=== PATIENT | male | born 1980 | race American Indian/Alaskan Native ===

== ENCOUNTER 2022-08-12 16:24 | Emergency (ER) | payer SELFPAY ==
[2022-08-12 16:45] VITALS: BP 113/78
[2022-08-12] MEDS ORDERED: LIDOCAINE (1%) 10 MG/1 ML VIAL 20 ML MDV INFILTRATI ONE (17:00)
--- NOTE | 2022-08-12 17:19 | Cat Scan Report ---
CT MAXILLOFACIAL WITHOUT CONTRAST INDICATION / CLINICAL INFORMATION: fall, injury. TECHNIQUE: All CT scans at this location are performed using CT dose reduction for ALARA by means of automated e xposure control. COMPARISON: None available. FINDINGS: There are edematous changes involving right buccal soft tissues with irregularity of the overlying sk in compatible with laceration in this patient with given history of "injury". Additionally, there are somewhat at contiguous of foci of increased attenuation extending into the deeper soft tissues inclu ding the right masseter muscle to a depth of approximately 1.8 cm and correlation would be needed at regarding the type of injury and foreign bodies in this location. The underlying mandible appears int act FACIAL BONES: There is no clear CT evidence of acute fracture of the facial bones. The orbital peña, sinuses and zygomatic arches also appear intact. There are multiple lucencies involving root of the molars. However, no significant inflammatory changes are seen within the adjacent soft tissues to ind icate infectious process. PARANASAL SINUSES: There is minimal mucosal thickening along the inferior maxillary sinuses measuring 3-4 mm in greatest thickness. Is also opacification of the ostiomeatal complexes along with mild muc osal thickening within the ethmoid air cells. This mild deviation of the nasal septum toward the right. There is a focal defect more anteriorly whi ch may be on a postoperative basis and correlation would be needed. There is opacification of the adj acent nasal cavities and the findings may be on inflammatory basis. ORBITS: The optic globes demonstrate appropriate size and configuration. No significant post septal i nflammatory changes are identified. ADDITIONAL FINDINGS: None. IMPRESSION: 1. The findings are compatible with post traumatic changes involving right buccal soft tissues with debris extending within the deeper soft tissues including the right masseter muscle as detailed abov e. 2. There is no clear CT evidence of acute fracture of the facial bones. 3. There are sinonasal inflammatory changes, also described above. Signer Name: Michael Daniel MD Signed: 08/12/2022 5:14 PM Workstation Name: [id number]
[2022-08-12] MEDS ORDERED: oxyCODONE /ACETAMINOPHEN 5-325MG TAB PO ONE (17:25)
[2022-08-12] MEDS ORDERED: KETOROLAC 10 MG TAB PO ONE (17:25)
--- NOTE | 2022-08-12 18:25 | Emergency Department Report ---
- General Chief Complaint: Laceration/Recheck/Suture Stated Complaint: CUT ON FACE Time Seen by Provider: 08/12/22 17:25 Source: patient Mode of arrival: Ambulatory Limitations: No Limitations - History of Present Illness Initial Comments: 41-year-old black male with no past medical history presents to the emergency department for evaluation after a fall. He states that he was walking, fell down, and cut the side of his face. He denies loss of consciousness and presents with laceration to right side of face along with pain and swelling to area. He states that pain in his face is significantly worse when he attempts to open his mouth and his tetanus is up-to-date. -: Sudden Location: face Place: work, outdoors Context: accidental Associated Symptoms: pain - Related Data Previous Rx's Medication Instructions Recorded Last Taken Type Ketorolac [Toradol] 10 mg PO Q6H PRN #12 tab 08/12/22 Unknown Rx Allergies Allergy/AdvReac Type Severity Reaction Status Date / Time No Known Allergies Allergy Verified 08/12/22 16:47 ED Review of Systems ROS: Stated complaint: CUT ON FACE Other details as noted in HPI Comment: All other systems reviewed and negative Constitutional: denies: chills ENT: denies: ear pain Respiratory: denies: shortness of breath Cardiovascular: denies: chest pain, palpitations Gastrointestinal: denies: abdominal pain, nausea, vomiting Neurological: denies: headache, weakness ED Past Medical Hx - Past Medical History Previous Medical History?: No - Surgical History Past Surgical History?: No - Medications Home Medications: Home Medications Medication Instructions Recorded Confirmed Last Taken Type Ketorolac [Toradol] 10 mg PO Q6H PRN #12 tab 08/12/22 Unknown Rx ED Physical Exam - General Limitations: No Limitations General appearance: alert, in no apparent distress - Head Head exam: Present: normocephalic. Absent: atraumatic - Expanded Head Exam Expanded Head exam: Present: laceration 1 - Laceration - Eye Eye exam: Present: normal appearance. Absent: periorbital swelling - Neck Neck exam: Present: normal inspection - Respiratory Respiratory exam: Absent: respiratory distress - Cardiovascular Cardiovascular Exam: Present: regular rate - GI/Abdominal GI/Abdominal exam: Absent: distended, tenderness - Extremities Exam Extremities exam: Present: normal inspection - Back Exam Back exam: Present: normal inspection - Neurological Exam Neurological exam: Present: alert, oriented X3 - Psychiatric Psychiatric exam: Present: normal affect, normal mood - Skin Skin exam: Present: warm, dry, normal color ED Course Vital Signs 08/12/22 16:41 Temperature 98.9 F Pulse Rate 94 H Respiratory 16 Rate Blood Pressure 113/78 [Left] O2 Sat by Pulse 97 Oximetry - Laceration /Wound Repair Right Face Wound Location: face Wound Length (cm): 6 Wound's Depth, Shape: into muscle, stellate Wound Explored: no foreign body removed Irrigated w/ Saline (ccs): 80 Betadine Prep?: No Anesthesia: 1% Lidocaine Volume Anesthetic (ccs): 10 Wound Repaired With: sutures Suture Size/Type: 5:0, nylon Number of Sutures: 12 Layer Closure?: No Sterile Dressing Applied?: No Progress: Patient tolerated well ED Medical Decision Making - Radiology Data Radiology results: report reviewed, image reviewed CT facial bones without contrast: FINDINGS: There are edematous changes involving right buccal soft tissues with irregularity of the overlying skin compatible with laceration in this patient with given history of "injury". Additionally, there are somewhat at contiguous of foci of increased attenuation extending into the deeper soft tissues including the right masseter muscle to a depth of approximately 1.8 cm and correlation would be needed at regarding the type of injury and foreign bodies in this location. The underlying mandible appears intact FACIAL BONES: There is no clear CT evidence of acute fracture of the facial bones. The orbital peña, sinuses and zygomatic arches also appear intact. There are multiple lucencies involving root of the molars. However, no significant inflammatory changes are seen within the adjacent soft tissues to indicate infectious process. PARANASAL SINUSES: There is minimal mucosal thickening along the inferior maxillary sinuses measuring 3-4 mm in greatest thickness. Is also opacification of the ostiomeatal complexes along with mild mucosal thickening within the ethmoid air cells. This mild deviation of the nasal septum toward the right. There is a focal de fect more anteriorly which may be on a postoperative basis and correlation would be needed. There is opacification of the adjacent nasal cavities and the findings may be on inflammatory basis. ORBITS: The optic globes demonstrate appropriate size and configuration. No significant post septal inflammatory changes are identified. ADDITIONAL FINDINGS: None. IMPRESSION: 1. The findings are compatible with post traumatic changes involving right buccal soft tissues with debris extending within the deeper soft tissues including the right masseter muscle as detailed above. 2. There is no clear CT evidence of acute fracture of the facial bones. 3. There are sinonasal inflammatory changes, also described above. - Medical Decision Making 41-year-old black male with no past medical history presents to the emergency department for evaluation after a fall. He states that he was walking, fell down, and cut the side of his face. He denies loss of consciousness and presents with laceration to right side of face along with pain and swelling to area. He states that pain in his face is significantly worse when he attempts to open his mouth and his tetanus is up-to-date. CT facial bones without any acute abnormalities noted. Facial laceration repaired per my procedure note. Discussed signs and symptoms of infection with patient and advised him to return if any noted. Patient discharged home with Toradol to use as needed for pain and advised to return in 7 to 10 days for suture removal. He verbalizes understanding of and agreement with plan of care. Critical care attestation.: If time is entered above; I have spent that time in minutes in the direct care of this critically ill patient, excluding procedure time. ED Disposition Clinical Impression: Fall Qualifiers: Encounter type: initial encounter Qualified Code(s): W19.XXXA - Unspecified fall, initial encounter Facial laceration Qualifiers: Encounter type: initial encounter Qualified Code(s): S01.81XA - Laceration without foreign body of other part of head, initial encounter Disposition: 01 HOME / SELF CARE / HOMELESS Is pt being admited?: No Does the pt Need Aspirin: No Condition: Stable Instructions: Laceration Care, Adult, [id number], Sutured Wound Care, [id number] Additional Instructions: Monitor for signs of infection and return to emergency department immediately if any noted. Have stitches removed in 7-10 days. Prescriptions: Ketorolac [Toradol] 10 mg PO Q6H PRN #12 tab PRN Reason: Pain Referrals: PRIMARY CARE, [Primary Care Provider] - 3-5 Days Forms: Work/School Release Form(ED) Time of Disposition: 18:25
== END 2022-08-12 18:37 | disposition home or self-care (01) ==
LOC: ED 16:24
DX: S01.81XA Laceration without foreign body of other part of head, initial encounter (principal); Z79.899 Other long term (current) drug therapy; W18.39XA Other fall on same level, initial encounter; Y93.89 Activity, other specified; Y92.89 Other specified places as the place of occurrence of the external cause; Y99.8 Other external cause status
CPT/HCPCS: 70486; 99283